=== PATIENT | female | born 1955 ===

== ENCOUNTER 2022-01-16 09:45 | Inpatient (IN) ==
[2022-01-16] MEDS ORDERED: Amoxicillin 500 MG CAPSULE PO SCH (16:00)
[2022-01-16] MEDS: Gabapentin 100 MG CAPSULE PO SCH ×2 (16:44→22:45)
[2022-01-16] MEDS: polyethylene glycoL 3350 17 GM POWD.PACK PO SCH (18:04)
[2022-01-16] MEDS: FILGRASTIM SNDZ 480 MCG/0.8 ML SQ SCH (18:14)
[2022-01-16] MEDS: *HR* HYDROmorphone 2 MG TABLET PO PRN (22:44)
[2022-01-16] MEDS: Sennosides 8.6 MG TABLET PO SCH (22:45)
[2022-01-16] MEDS: [UNRECOGNIZED DRUG - REMARK] PO SCH (22:46)
[2022-01-17] MEDS: Amoxicillin 500 MG CAPSULE PO SCH ×4 (00:41→23:04)
[2022-01-17 04:58] LABS: Hematocrit 23.4 % (35.3-44.9); Hemoglobin 7.5 g/dL (11.5-15.4); Mean Corpuscular HGB Conc 32.1 g/dL (31.6-35.5); Mean Corpuscular Hemoglobin 28.6 pg (28.0-33.3); Mean Corpuscular Volume 89.3 fL (83.0-100.0); Mean Platelet Volume 10.3 fL (9.4-12.4); Platelet Count 187 K/mcL (140-400); Red Blood Count 2.62 M/mcL (3.82-4.97); Red Cell Distribution Width 14.7 % (11.5-14.5); White Blood Count 17.7 K/mcL (4.3-11.1)
[2022-01-17 04:59] LABS: Basophils # 0.2 K/mcL (0.0-0.2); Basophils % 0.9 %; Eosinophils % 0.1 %; Immature Granulocytes % 21.9 % (0-4); Lymphocytes # 1.8 K/mcL (0.6-4.6); Monocytes # 1.9 K/mcL (0.0-1.3); Monocytes % 10.8 %; Nucleated Red Blood Cells 0.8 /100 WBC (0); Segmented Neutrophils % 56.3 %
[2022-01-17] MEDS: *HR* HYDROmorphone 2 MG TABLET PO PRN ×2 (05:05→20:56)
[2022-01-17 05:06] LABS: Platelet Estimate Normal (Normal)
[2022-01-17] MEDS: *HR* Enoxaparin 40 MG/0.4 ML SYRINGE SQ SCH (05:08)
[2022-01-17] MEDS: polyethylene glycoL 3350 17 GM POWD.PACK PO SCH ×2 (05:09→17:21)
[2022-01-17 05:12] LABS: BUN/Creatinine Ratio 17 (6-26); Blood Urea Nitrogen 11 mg/dL (8-23); Calcium 8.5 mg/dL (8.6-10.3); Carbon Dioxide 29 mEq/L (23-29); Chloride 104 mEq/L (98-107); Glucose 109 mg/dL (70-105); Osmolality,Calculated 290 (280-300); Sodium 140 mEq/L (136-145); eGFR For African Americans > 60 (> 60); eGFR For Non-African Americans > 60 (> 60)
[2022-01-17] MEDS: Gabapentin 100 MG CAPSULE PO SCH ×3 (08:03→20:54)
[2022-01-17] MEDS: Sennosides 8.6 MG TABLET PO SCH ×2 (08:03→20:54)
[2022-01-17] MEDS: dexAMETHasone 4 MG TABLET PO SCH (08:04)
[2022-01-17] MEDS: [UNRECOGNIZED DRUG - REMARK] PO SCH ×3 (08:04→20:56)
[2022-01-17] MEDS: GUAR GUM PO SCH (08:04)
[2022-01-17] MEDS: Ondansetron ODT 4 MG TAB.RAPDIS SL PRN (12:35)
[2022-01-17] MEDS: FILGRASTIM SNDZ 480 MCG/0.8 ML SQ SCH (17:23)
[2022-01-18] MEDS: polyethylene glycoL 3350 17 GM POWD.PACK PO SCH ×2 (06:02→17:50)
[2022-01-18] MEDS: *HR* HYDROmorphone 2 MG TABLET PO PRN ×4 (06:21→20:06)
[2022-01-18] MEDS: *HR* Enoxaparin 40 MG/0.4 ML SYRINGE SQ SCH (06:21)
[2022-01-18] MEDS: [UNRECOGNIZED DRUG - REMARK] PO SCH ×3 (09:03→21:52)
[2022-01-18] MEDS: GUAR GUM PO SCH (09:03)
[2022-01-18] MEDS: dexAMETHasone 4 MG TABLET PO SCH (09:44)
[2022-01-18] MEDS: Gabapentin 100 MG CAPSULE PO SCH ×3 (09:45→20:03)
[2022-01-18] MEDS: Sennosides 8.6 MG TABLET PO SCH ×2 (09:45→20:03)
[2022-01-18] MEDS: Amoxicillin 500 MG CAPSULE PO SCH ×3 (09:45→15:58)
[2022-01-18] MEDS: FILGRASTIM SNDZ 480 MCG/0.8 ML SQ SCH (17:33)
[2022-01-18] MEDS: *HR* LORazepam 0.5 MG TABLET PO PRN (17:50)
[2022-01-19] MEDS: *HR* HYDROmorphone 2 MG TABLET PO PRN ×3 (05:28→20:20)
[2022-01-19] MEDS: Sennosides 8.6 MG TABLET PO SCH ×2 (05:28→20:19)
[2022-01-19] MEDS: dexAMETHasone 4 MG TABLET PO SCH (05:28)
[2022-01-19] MEDS: [UNRECOGNIZED DRUG - REMARK] PO SCH ×3 (05:34→20:22)
[2022-01-19] MEDS: Gabapentin 100 MG CAPSULE PO SCH ×3 (05:34→20:20)
[2022-01-19] MEDS: polyethylene glycoL 3350 17 GM POWD.PACK PO SCH ×2 (05:34→17:00)
[2022-01-19] MEDS: GUAR GUM PO SCH (05:35)
[2022-01-19] MEDS: *HR* Enoxaparin 40 MG/0.4 ML SYRINGE SQ SCH (05:35)
[2022-01-19 06:01] LABS: Basophils # 0.1 K/mcL (0.0-0.2); Basophils % 0.3 %; Eosinophils % 0.1 %; Hematocrit 26.8 % (35.3-44.9); Hemoglobin 8.1 g/dL (11.5-15.4); Immature Granulocytes % 15.9 % (0-4); Lymphocytes % 11.7 %; Mean Corpuscular HGB Conc 30.2 g/dL (31.6-35.5); Mean Corpuscular Hemoglobin 28.4 pg (28.0-33.3); Mean Platelet Volume 9.9 fL (9.4-12.4); Monocytes % 10.7 %; Nucleated Red Blood Cells 1.5 /100 WBC (0); Platelet Count 363 K/mcL (140-400); Red Blood Count 2.85 M/mcL (3.82-4.97); Segmented Neutrophils % 61.3 %; White Blood Count 17.2 K/mcL (4.3-11.1)
[2022-01-19 06:21] LABS: Monocytes # 1.8 K/mcL (0.0-1.3); Neutrophils # 10.5 K/mcL (1.6-8.9)
[2022-01-19 06:22] LABS: Alanine Aminotransferase 92 Units/L (7-52); Albumin 2.7 g/dL (3.5-5.7); Alkaline Phosphatase 619 Units/L (34-104); Aspartate Amino Transferase 88 Units/L (13-39); BUN/Creatinine Ratio 20 (6-26); Bilirubin,Total 0.3 mg/dL (0.3-1.0); Blood Urea Nitrogen 11 mg/dL (8-23); Calcium 8.8 mg/dL (8.6-10.3); Carbon Dioxide 31 mEq/L (23-29); Chloride 105 mEq/L (98-107); Globulin 2.8 g/dL (2.4-3.5); Glucose 92 mg/dL (70-105); Magnesium 1.5 mg/dL (1.6-2.6); Osmolality,Calculated 295 (280-300); Potassium 3.7 mEq/L (3.5-5.1); Sodium 143 mEq/L (136-145); Total Protein 5.5 g/dL (6.4-8.9); eGFR For African Americans > 60 (> 60); eGFR For Non-African Americans > 60 (> 60)
[2022-01-19 06:23] LABS: Anisocytosis 1+ (Not Present); Platelet Estimate Normal (Normal); Poikilocytosis 1+ (Not Present)
[2022-01-19] MEDS: Acetaminophen 325 MG TABLET PO PRN (15:18)
[2022-01-19] MEDS: *HR* LORazepam 0.5 MG TABLET PO PRN (15:18)
[2022-01-19] MEDS: FILGRASTIM SNDZ 480 MCG/0.8 ML SQ SCH (17:02)
[2022-01-20] MEDS: polyethylene glycoL 3350 17 GM POWD.PACK PO SCH ×3 (05:21→23:01)
[2022-01-20] MEDS: *HR* HYDROmorphone 2 MG TABLET PO PRN (05:22)
[2022-01-20] MEDS: *HR* Enoxaparin 40 MG/0.4 ML SYRINGE SQ SCH (05:24)
[2022-01-20] MEDS: Sennosides 8.6 MG TABLET PO SCH ×2 (08:43→20:35)
[2022-01-20] MEDS: dexAMETHasone 4 MG TABLET PO SCH (08:43)
[2022-01-20] MEDS: Gabapentin 100 MG CAPSULE PO SCH ×3 (08:43→20:34)
[2022-01-20] MEDS: GUAR GUM PO SCH (08:45)
[2022-01-20] MEDS: [UNRECOGNIZED DRUG - REMARK] PO SCH ×3 (08:45→20:35)
[2022-01-20] MEDS: FILGRASTIM SNDZ 480 MCG/0.8 ML SQ SCH (16:37)
[2022-01-20] MEDS: *HR* LORazepam 0.5 MG TABLET PO PRN (20:34)
[2022-01-21] MEDS: *HR* Enoxaparin 40 MG/0.4 ML SYRINGE SQ SCH (06:25)
[2022-01-21] MEDS: [UNRECOGNIZED DRUG - REMARK] PO SCH ×3 (08:29→20:54)
[2022-01-21] MEDS: dexAMETHasone 4 MG TABLET PO SCH (08:29)
[2022-01-21] MEDS: Gabapentin 100 MG CAPSULE PO SCH ×3 (08:29→20:55)
[2022-01-21] MEDS: Sennosides 8.6 MG TABLET PO SCH ×2 (08:29→20:54)
[2022-01-21] MEDS: GUAR GUM PO SCH (08:30)
[2022-01-21] MEDS: *HR* HYDROmorphone 2 MG TABLET PO PRN ×2 (15:11→20:58)
[2022-01-21] MEDS: *HR* LORazepam 0.5 MG TABLET PO PRN (15:11)
[2022-01-21] MEDS: polyethylene glycoL 3350 17 GM POWD.PACK PO SCH (17:33)
[2022-01-21] MEDS: FILGRASTIM SNDZ 480 MCG/0.8 ML SQ SCH (17:34)
[2022-01-22] MEDS: polyethylene glycoL 3350 17 GM POWD.PACK PO SCH ×2 (00:43→18:03)
[2022-01-22 04:38] LABS: Basophils # 0.1 K/mcL (0.0-0.2); Basophils % 0.4 %; Hematocrit 23.8 % (35.3-44.9); Hemoglobin 7.4 g/dL (11.5-15.4); Immature Granulocytes % 5.5 % (0-4); Lymphocytes # 1.4 K/mcL (0.6-4.6); Lymphocytes % 10.9 %; Mean Corpuscular HGB Conc 31.1 g/dL (31.6-35.5); Mean Corpuscular Hemoglobin 28.1 pg (28.0-33.3); Mean Corpuscular Volume 90.5 fL (83.0-100.0); Mean Platelet Volume 9.5 fL (9.4-12.4); Monocytes # 1.3 K/mcL (0.0-1.3); Neutrophils # 9.6 K/mcL (1.6-8.9); Nucleated Red Blood Cells 0.7 /100 WBC (0); Platelet Count 494 K/mcL (140-400); Red Blood Count 2.63 M/mcL (3.82-4.97); Segmented Neutrophils % 73.2 %; White Blood Count 13.1 K/mcL (4.3-11.1)
[2022-01-22 04:43] LABS: Anisocytosis 1+ (Not Present)
[2022-01-22 04:44] LABS: Poikilocytosis 1+ (Not Present)
[2022-01-22] MEDS: *HR* Enoxaparin 40 MG/0.4 ML SYRINGE SQ SCH (04:44)
[2022-01-22 04:52] LABS: BUN/Creatinine Ratio 38 (6-26); Blood Urea Nitrogen 21 mg/dL (8-23); Carbon Dioxide 29 mEq/L (23-29); Chloride 105 mEq/L (98-107); Glucose 95 mg/dL (70-105); Osmolality,Calculated 295 (280-300); Potassium 3.6 mEq/L (3.5-5.1); Sodium 141 mEq/L (136-145); eGFR For African Americans > 60 (> 60); eGFR For Non-African Americans > 60 (> 60)
[2022-01-22] MEDS: dexAMETHasone 4 MG TABLET PO SCH (09:15)
[2022-01-22] MEDS: Gabapentin 100 MG CAPSULE PO SCH ×3 (09:15→19:54)
[2022-01-22] MEDS: Sennosides 8.6 MG TABLET PO SCH ×2 (09:16→19:56)
[2022-01-22] MEDS: *HR* HYDROmorphone 2 MG TABLET PO PRN ×2 (09:16→18:03)
[2022-01-22] MEDS: [UNRECOGNIZED DRUG - REMARK] PO SCH ×2 (09:16→15:19)
[2022-01-22] MEDS: GUAR GUM PO SCH (09:17)
[2022-01-22] MEDS: *HR* LORazepam 0.5 MG TABLET PO PRN (10:16)
[2022-01-22] MEDS: FILGRASTIM SNDZ 480 MCG/0.8 ML SQ SCH (18:03)
[2022-01-23] MEDS: [UNRECOGNIZED DRUG - REMARK] PO SCH ×4 (04:46→20:16)
[2022-01-23] MEDS: polyethylene glycoL 3350 17 GM POWD.PACK PO SCH ×2 (04:46→16:38)
[2022-01-23] MEDS: *HR* Enoxaparin 40 MG/0.4 ML SYRINGE SQ SCH (06:40)
[2022-01-23] MEDS: GUAR GUM PO SCH (07:43)
[2022-01-23] MEDS: dexAMETHasone 4 MG TABLET PO SCH (07:55)
[2022-01-23] MEDS: Gabapentin 100 MG CAPSULE PO SCH ×3 (07:55→20:32)
[2022-01-23] MEDS: Sennosides 8.6 MG TABLET PO SCH ×2 (07:55→20:32)
[2022-01-23] MEDS: *HR* HYDROmorphone 2 MG TABLET PO PRN (07:56)
[2022-01-23] MEDS: *HR* LORazepam 0.5 MG TABLET PO PRN (09:16)
[2022-01-23] MEDS: FILGRASTIM SNDZ 480 MCG/0.8 ML SQ SCH (16:22)
[2022-01-24 04:58] LABS: Hemoglobin 7.9 g/dL (11.5-15.4); Mean Corpuscular HGB Conc 31.6 g/dL (31.6-35.5); Mean Corpuscular Hemoglobin 28.3 pg (28.0-33.3); Mean Corpuscular Volume 89.6 fL (83.0-100.0); Mean Platelet Volume 9.4 fL (9.4-12.4); Platelet Count 563 K/mcL (140-400); Red Blood Count 2.79 M/mcL (3.82-4.97); Red Cell Distribution Width 14.9 % (11.5-14.5); White Blood Count 8.2 K/mcL (4.3-11.1)
[2022-01-24] MEDS: polyethylene glycoL 3350 17 GM POWD.PACK PO SCH ×2 (04:58→18:07)
[2022-01-24 05:16] LABS: Alanine Aminotransferase 55 Units/L (7-52); Albumin 2.9 g/dL (3.5-5.7); Albumin/Globulin Ratio 1.2 (1.1-2.2); Alkaline Phosphatase 370 Units/L (34-104); Aspartate Amino Transferase 57 Units/L (13-39); BUN/Creatinine Ratio 38 (6-26); Bilirubin,Total 0.3 mg/dL (0.3-1.0); Blood Urea Nitrogen 24 mg/dL (8-23); Calcium 8.9 mg/dL (8.6-10.3); Carbon Dioxide 25 mEq/L (23-29); Chloride 107 mEq/L (98-107); Globulin 2.5 g/dL (2.4-3.5); Glucose 95 mg/dL (70-105); Magnesium 1.7 mg/dL (1.6-2.6); Osmolality,Calculated 294 (280-300); Potassium 4.2 mEq/L (3.5-5.1); Sodium 140 mEq/L (136-145); Total Protein 5.4 g/dL (6.4-8.9); eGFR For African Americans > 60 (> 60); eGFR For Non-African Americans > 60 (> 60)
[2022-01-24] MEDS: *HR* Enoxaparin 40 MG/0.4 ML SYRINGE SQ SCH (06:30)
[2022-01-24] MEDS: *HR* HYDROmorphone 2 MG TABLET PO PRN (08:20)
[2022-01-24] MEDS: Gabapentin 100 MG CAPSULE PO SCH ×3 (08:21→20:41)
[2022-01-24] MEDS: Sennosides 8.6 MG TABLET PO SCH ×2 (08:22→20:41)
[2022-01-24] MEDS: GUAR GUM PO SCH (08:22)
[2022-01-24] MEDS: [UNRECOGNIZED DRUG - REMARK] PO SCH ×3 (08:22→20:39)
[2022-01-24] MEDS: dexAMETHasone 4 MG TABLET PO SCH (08:22)
[2022-01-24] MEDS: *HR* LORazepam 0.5 MG TABLET PO PRN (10:55)
[2022-01-24] MEDS: FILGRASTIM SNDZ 480 MCG/0.8 ML SQ SCH (18:08)
[2022-01-25] MEDS: polyethylene glycoL 3350 17 GM POWD.PACK PO SCH ×2 (05:12→17:16)
[2022-01-25] MEDS: *HR* Enoxaparin 40 MG/0.4 ML SYRINGE SQ SCH (05:12)
[2022-01-25] MEDS: dexAMETHasone 4 MG TABLET PO SCH (09:26)
[2022-01-25] MEDS: Sennosides 8.6 MG TABLET PO SCH ×2 (09:26→21:00)
[2022-01-25] MEDS: Gabapentin 100 MG CAPSULE PO SCH ×3 (09:28→21:00)
[2022-01-25] MEDS: GUAR GUM PO SCH (09:29)
[2022-01-25] MEDS: [UNRECOGNIZED DRUG - REMARK] PO SCH ×3 (09:29→21:01)
[2022-01-25] MEDS: FILGRASTIM SNDZ 480 MCG/0.8 ML SQ SCH (17:16)
[2022-01-25] MEDS: Ondansetron ODT 4 MG TAB.RAPDIS SL PRN (18:55)
[2022-01-26] MEDS: *HR* HYDROmorphone 2 MG TABLET PO PRN ×3 (00:20→13:06)
[2022-01-26] MEDS: *HR* Enoxaparin 40 MG/0.4 ML SYRINGE SQ SCH (06:00)
[2022-01-26] MEDS: polyethylene glycoL 3350 17 GM POWD.PACK PO SCH ×2 (06:01→15:28)
[2022-01-26 07:42] LABS: Hematocrit 25.9 % (35.3-44.9); Hemoglobin 7.8 g/dL (11.5-15.4); Mean Corpuscular HGB Conc 30.1 g/dL (31.6-35.5); Mean Corpuscular Volume 92.8 fL (83.0-100.0); Mean Platelet Volume 9.9 fL (9.4-12.4); Platelet Count 505 K/mcL (140-400); Red Blood Count 2.79 M/mcL (3.82-4.97); White Blood Count 22.8 K/mcL (4.3-11.1)
[2022-01-26 07:54] LABS: Alanine Aminotransferase 55 Units/L (7-52); Albumin 3.1 g/dL (3.5-5.7); Albumin/Globulin Ratio 1.2 (1.1-2.2); Alkaline Phosphatase 343 Units/L (34-104); Aspartate Amino Transferase 58 Units/L (13-39); BUN/Creatinine Ratio 43 (6-26); Bilirubin,Total 0.4 mg/dL (0.3-1.0); Blood Urea Nitrogen 21 mg/dL (8-23); Calcium 8.9 mg/dL (8.6-10.3); Carbon Dioxide 23 mEq/L (23-29); Chloride 101 mEq/L (98-107); Globulin 2.6 g/dL (2.4-3.5); Glucose 84 mg/dL (70-105); Magnesium 1.5 mg/dL (1.6-2.6); Osmolality,Calculated 282 (280-300); Potassium 3.7 mEq/L (3.5-5.1); Sodium 135 mEq/L (136-145); Total Protein 5.7 g/dL (6.4-8.9); eGFR For African Americans > 60 (> 60); eGFR For Non-African Americans > 60 (> 60)
[2022-01-26] MEDS: [UNRECOGNIZED DRUG - REMARK] PO SCH ×3 (07:59→20:37)
[2022-01-26] MEDS: GUAR GUM PO SCH (07:59)
[2022-01-26] MEDS: dexAMETHasone 4 MG TABLET PO SCH (07:59)
[2022-01-26] MEDS: Ondansetron ODT 4 MG TAB.RAPDIS SL PRN ×2 (07:59→13:06)
[2022-01-26] MEDS: Sennosides 8.6 MG TABLET PO SCH ×2 (08:00→20:37)
[2022-01-26] MEDS: Gabapentin 100 MG CAPSULE PO SCH ×3 (08:00→20:37)
[2022-01-26] MEDS: FILGRASTIM SNDZ 480 MCG/0.8 ML SQ SCH (15:28)
[2022-01-26 17:32] LABS: Bilirubin,Urine Negative (Negative); Blood,Urine Negative (Negative); Clarity,Urine Clear (Clear); Color,Urine Yellow (Yellow); Glucose,Urine (UA) Normal (Normal); Ketones,Urine Negative (Negative); Leukocyte Esterase,Urine Negative (Negative); Nitrite,Urine Negative (Negative); Protein,Urine Negative (Neg-Trace); Specific Gravity,Urine 1.025 (1.010-1.025); Urobilinogen,Urine Normal (Normal)
[2022-01-27] MEDS: *HR* Enoxaparin 40 MG/0.4 ML SYRINGE SQ SCH (05:56)
[2022-01-27] MEDS: polyethylene glycoL 3350 17 GM POWD.PACK PO SCH ×2 (05:56→15:58)
[2022-01-27 06:06] LABS: Hematocrit 21.5 % (35.3-44.9); Hemoglobin 6.7 g/dL (11.5-15.4); Mean Corpuscular HGB Conc 31.2 g/dL (31.6-35.5); Mean Corpuscular Hemoglobin 28.3 pg (28.0-33.3); Mean Corpuscular Volume 90.7 fL (83.0-100.0); Mean Platelet Volume 9.4 fL (9.4-12.4); Platelet Count 397 K/mcL (140-400); Red Blood Count 2.37 M/mcL (3.82-4.97); White Blood Count 20.8 K/mcL (4.3-11.1)
[2022-01-27 06:21] LABS: Alanine Aminotransferase 41 Units/L (7-52); Alkaline Phosphatase 299 Units/L (34-104); Aspartate Amino Transferase 32 Units/L (13-39); BUN/Creatinine Ratio 36 (6-26); Bilirubin,Total 0.4 mg/dL (0.3-1.0); Blood Urea Nitrogen 16 mg/dL (8-23); Calcium 8.8 mg/dL (8.6-10.3); Carbon Dioxide 25 mEq/L (23-29); Chloride 100 mEq/L (98-107); Globulin 2.9 g/dL (2.4-3.5); Glucose 101 mg/dL (70-105); Magnesium 1.8 mg/dL (1.6-2.6); Osmolality,Calculated 279 (280-300); Phosphorous 2.9 mg/dL (2.7-4.5); Potassium 3.6 mEq/L (3.5-5.1); Sodium 134 mEq/L (136-145); Total Protein 5.9 g/dL (6.4-8.9); eGFR For African Americans > 60 (> 60); eGFR For Non-African Americans > 60 (> 60)
[2022-01-27] MEDS: GUAR GUM PO SCH (08:58)
[2022-01-27] MEDS: Sennosides 8.6 MG TABLET PO SCH ×2 (08:58→20:07)
[2022-01-27] MEDS: [UNRECOGNIZED DRUG - REMARK] PO SCH ×3 (08:58→20:20)
[2022-01-27] MEDS: dexAMETHasone 4 MG TABLET PO SCH (09:12)
[2022-01-27] MEDS: Gabapentin 100 MG CAPSULE PO SCH ×3 (09:12→20:07)
[2022-01-27] MEDS: *HR* HYDROmorphone 2 MG TABLET PO PRN (11:25)
[2022-01-27] MEDS: FILGRASTIM SNDZ 480 MCG/0.8 ML SQ SCH (15:59)
[2022-01-27] MEDS: *HR* LORazepam 0.5 MG TABLET PO PRN (20:07)
[2022-01-28] MEDS: polyethylene glycoL 3350 17 GM POWD.PACK PO SCH ×2 (05:04→16:02)
[2022-01-28] MEDS: *HR* Enoxaparin 40 MG/0.4 ML SYRINGE SQ SCH (05:05)
[2022-01-28 06:26] LABS: Basophils % 0.3 %; Hematocrit 19.9 % (35.3-44.9); Hemoglobin 6.3 g/dL (11.5-15.4); Immature Granulocytes % 12.1 % (0-4); Lymphocytes # 0.7 K/mcL (0.6-4.6); Lymphocytes % 6.5 %; Mean Corpuscular HGB Conc 31.7 g/dL (31.6-35.5); Mean Corpuscular Hemoglobin 28.4 pg (28.0-33.3); Mean Corpuscular Volume 89.6 fL (83.0-100.0); Mean Platelet Volume 9.5 fL (9.4-12.4); Monocytes % 0.3 %; Neutrophils # 8.4 K/mcL (1.6-8.9); Platelet Count 313 K/mcL (140-400); Red Blood Count 2.22 M/mcL (3.82-4.97); Red Cell Distribution Width 14.8 % (11.5-14.5); Segmented Neutrophils % 80.8 %; White Blood Count 10.4 K/mcL (4.3-11.1)
[2022-01-28 07:13] LABS: BUN/Creatinine Ratio 42 (6-26); Blood Urea Nitrogen 18 mg/dL (8-23); Carbon Dioxide 27 mEq/L (23-29); Chloride 99 mEq/L (98-107); Glucose 91 mg/dL (70-105); Osmolality,Calculated 279 (280-300); Potassium 3.7 mEq/L (3.5-5.1); Sodium 134 mEq/L (136-145); eGFR For African Americans > 60 (> 60); eGFR For Non-African Americans > 60 (> 60)
[2022-01-28 07:55] LABS: Platelet Estimate Normal (Normal)
[2022-01-28] MEDS ORDERED: 0.9 % Sodium Chloride 250 ML ONE (09:48)
[2022-01-28] MEDS: Sennosides 8.6 MG TABLET PO SCH ×2 (10:13→20:45)
[2022-01-28] MEDS: [UNRECOGNIZED DRUG - REMARK] PO SCH (10:13)
[2022-01-28] MEDS: GUAR GUM PO SCH (10:13)
[2022-01-28] MEDS: dexAMETHasone 4 MG TABLET PO SCH (13:15)
[2022-01-28] MEDS: Gabapentin 100 MG CAPSULE PO SCH ×3 (13:16→20:45)
[2022-01-28] MEDS: *HR* LORazepam 0.5 MG TABLET PO PRN (13:26)
[2022-01-28 15:36] LABS: Hematocrit 26.1 % (35.3-44.9); Hemoglobin 8.3 g/dL (11.5-15.4)
[2022-01-29 04:43] LABS: Basophils % 0.4 %; Hematocrit 24.2 % (35.3-44.9); Hemoglobin 7.8 g/dL (11.5-15.4); Immature Granulocytes % 15.1 % (0-4); Lymphocytes # 0.8 K/mcL (0.6-4.6); Mean Corpuscular HGB Conc 32.2 g/dL (31.6-35.5); Mean Corpuscular Hemoglobin 27.6 pg (28.0-33.3); Mean Corpuscular Volume 85.5 fL (83.0-100.0); Mean Platelet Volume 9.6 fL (9.4-12.4); Monocytes % 0.7 %; Platelet Count 294 K/mcL (140-400); Red Blood Count 2.83 M/mcL (3.82-4.97); Segmented Neutrophils % 65.8 %; White Blood Count 4.5 K/mcL (4.3-11.1)
[2022-01-29 04:49] LABS: Anisocytosis 1+ (Not Present); Platelet Estimate Normal (Normal)
[2022-01-29 04:58] LABS: BUN/Creatinine Ratio 45 (6-26); Blood Urea Nitrogen 17 mg/dL (8-23); Calcium 9.3 mg/dL (8.6-10.3); Carbon Dioxide 28 mEq/L (23-29); Chloride 103 mEq/L (98-107); Glucose 89 mg/dL (70-105); Osmolality,Calculated 289 (280-300); Sodium 139 mEq/L (136-145); eGFR For African Americans > 60 (> 60); eGFR For Non-African Americans > 60 (> 60)
[2022-01-29] MEDS: polyethylene glycoL 3350 17 GM POWD.PACK PO SCH ×2 (05:19→17:08)
[2022-01-29] MEDS: *HR* Enoxaparin 40 MG/0.4 ML SYRINGE SQ SCH (05:19)
[2022-01-29] MEDS: Gabapentin 100 MG CAPSULE PO SCH ×3 (07:56→21:16)
[2022-01-29] MEDS: Sennosides 8.6 MG TABLET PO SCH ×2 (07:57→21:16)
[2022-01-29] MEDS: dexAMETHasone 4 MG TABLET PO SCH (07:57)
[2022-01-29] MEDS: *HR* HYDROmorphone 2 MG TABLET PO PRN (14:16)
[2022-01-30] MEDS: polyethylene glycoL 3350 17 GM POWD.PACK PO SCH ×2 (04:36→16:38)
[2022-01-30] MEDS: *HR* Enoxaparin 40 MG/0.4 ML SYRINGE SQ SCH (05:47)
[2022-01-30 06:07] LABS: Basophils % 0.6 %; Hematocrit 27.1 % (35.3-44.9); Hemoglobin 8.2 g/dL (11.5-15.4); Immature Granulocytes % 6.7 % (0-4); Lymphocytes # 0.8 K/mcL (0.6-4.6); Mean Corpuscular HGB Conc 30.3 g/dL (31.6-35.5); Mean Corpuscular Hemoglobin 27.3 pg (28.0-33.3); Mean Corpuscular Volume 90.3 fL (83.0-100.0); Mean Platelet Volume 9.4 fL (9.4-12.4); Monocytes % 2.4 %; Platelet Count 204 K/mcL (140-400); Red Cell Distribution Width 15.8 % (11.5-14.5); Segmented Neutrophils % 40.3 %; White Blood Count 1.6 K/mcL (4.3-11.1)
[2022-01-30 06:08] LABS: Neutrophils # 0.6 K/mcL (1.6-8.9)
[2022-01-30 06:26] LABS: BUN/Creatinine Ratio 50 (6-26); Blood Urea Nitrogen 21 mg/dL (8-23); Calcium 9.3 mg/dL (8.6-10.3); Carbon Dioxide 26 mEq/L (23-29); Chloride 103 mEq/L (98-107); Glucose 86 mg/dL (70-105); Osmolality,Calculated 290 (280-300); Potassium 3.9 mEq/L (3.5-5.1); Sodium 139 mEq/L (136-145); eGFR For African Americans > 60 (> 60); eGFR For Non-African Americans > 60 (> 60)
[2022-01-30] MEDS: dexAMETHasone 4 MG TABLET PO SCH (07:48)
[2022-01-30] MEDS: Gabapentin 100 MG CAPSULE PO SCH ×3 (07:49→20:53)
[2022-01-30] MEDS: Sennosides 8.6 MG TABLET PO SCH ×3 (07:49→21:07)
[2022-01-30] MEDS: *HR* LORazepam 0.5 MG TABLET PO PRN (20:55)
[2022-01-31] MEDS: *HR* Enoxaparin 40 MG/0.4 ML SYRINGE SQ SCH (05:49)
[2022-01-31] MEDS: polyethylene glycoL 3350 17 GM POWD.PACK PO SCH ×2 (05:49→17:12)
[2022-01-31 06:49] LABS: Hematocrit 24.2 % (35.3-44.9); Hemoglobin 7.5 g/dL (11.5-15.4); Mean Corpuscular Hemoglobin 27.5 pg (28.0-33.3); Mean Corpuscular Volume 88.6 fL (83.0-100.0); Mean Platelet Volume 9.9 fL (9.4-12.4); Platelet Count 161 K/mcL (140-400); Red Blood Count 2.73 M/mcL (3.82-4.97); Red Cell Distribution Width 15.4 % (11.5-14.5)
[2022-01-31 07:00] LABS: Alanine Aminotransferase 46 Units/L (7-52); Albumin 3.2 g/dL (3.5-5.7); Albumin/Globulin Ratio 1.1 (1.1-2.2); Alkaline Phosphatase 240 Units/L (34-104); Aspartate Amino Transferase 25 Units/L (13-39); BUN/Creatinine Ratio 45 (6-26); Bilirubin,Total 0.6 mg/dL (0.3-1.0); Blood Urea Nitrogen 18 mg/dL (8-23); Calcium 9.3 mg/dL (8.6-10.3); Carbon Dioxide 26 mEq/L (23-29); Chloride 103 mEq/L (98-107); Glucose 88 mg/dL (70-105); Magnesium 1.3 mg/dL (1.6-2.6); Osmolality,Calculated 287 (280-300); Potassium 3.6 mEq/L (3.5-5.1); Sodium 138 mEq/L (136-145); Total Protein 6.2 g/dL (6.4-8.9); eGFR For African Americans > 60 (> 60); eGFR For Non-African Americans > 60 (> 60)
[2022-01-31 07:08] LABS: White Blood Count 0.9 K/mcL (4.3-11.1)
[2022-01-31 07:09] LABS: Platelet Estimate Slight Decrease (Normal)
[2022-01-31] MEDS: *HR* HYDROmorphone 2 MG TABLET PO PRN ×2 (09:15→16:04)
[2022-01-31] MEDS: dexAMETHasone 4 MG TABLET PO SCH (09:15)
[2022-01-31] MEDS: *HR* LORazepam 0.5 MG TABLET PO PRN (09:15)
[2022-01-31] MEDS: Gabapentin 100 MG CAPSULE PO SCH ×3 (09:15→21:42)
[2022-01-31] MEDS: Sennosides 8.6 MG TABLET PO SCH ×2 (09:15→21:42)
[2022-01-31 09:29] LABS: Neutrophils # 0.3 K/mcL (1.6-8.9)
[2022-01-31] MEDS: Ondansetron ODT 4 MG TAB.RAPDIS SL PRN (18:52)
[2022-01-31] MEDS: Acetaminophen 325 MG TABLET PO PRN ×2 (18:52→23:46)
[2022-01-31] MEDS ORDERED: 0.9 % Sodium Chloride 1,000 ML IVC ONE (19:23)
[2022-01-31] MEDS ORDERED: 0.9 % Sodium Chloride 1,000 ML IVC SCH (19:30)
[2022-01-31 20:32] LABS: Bilirubin,Urine Negative (Negative); Blood,Urine Moderate (Negative); Clarity,Urine Slightly Cloudy (Clear); Color,Urine Yellow (Yellow); Glucose,Urine (UA) Normal (Normal); Ketones,Urine Negative (Negative); Leukocyte Esterase,Urine Small (Negative); Nitrite,Urine Positive (Negative); PH,Urine 6.5 pH Units (5.0-8.0); Protein,Urine 100 mg/dL (Neg-Trace); Urobilinogen,Urine Normal (Normal)
[2022-01-31 20:57] LABS: Bacteria,Urine Many per hpf (None-Few); Budding Yeast,Urine Moderate per hpf (None Seen); Squamous Epithelial Cell,Urine Few per hpf (None-Few); WBC,Urine 50-100 per hpf (0-3)
[2022-01-31] MEDS ORDERED: Vancomycin 1,000 MG, Vancomycin 500 MG in 0.9 % Sodium Chloride 250 ML IVPB ONE ×2 (21:00→22:00)
[2022-01-31] MEDS: Magnesium Oxide 400 MG TABLET PO SCH (21:42)
[2022-01-31] MEDS: 0.9 % Sodium Chloride 1,000 ML IVC SCH (23:11)
[2022-01-31] MEDS: Cefepime HCl 1,000 MG in 0.9 % Sodium Chloride Mini Bag 100 ML IVPB SCH (23:47)
[2022-02-01] MEDS: *HR* Enoxaparin 40 MG/0.4 ML SYRINGE SQ SCH (05:44)
[2022-02-01] MEDS: polyethylene glycoL 3350 17 GM POWD.PACK PO SCH ×2 (05:48→17:32)
[2022-02-01] MEDS: Magnesium Oxide 400 MG TABLET PO SCH ×2 (08:46→19:47)
[2022-02-01] MEDS: Sennosides 8.6 MG TABLET PO SCH ×2 (08:47→19:47)
[2022-02-01] MEDS: Gabapentin 100 MG CAPSULE PO SCH ×3 (08:47→19:48)
[2022-02-01] MEDS: Cefepime HCl 1,000 MG in 0.9 % Sodium Chloride Mini Bag 100 ML IVPB SCH (08:47)
[2022-02-01] MEDS: *HR* HYDROmorphone 2 MG TABLET PO PRN (08:51)
[2022-02-01] MEDS: 0.9 % Sodium Chloride 1,000 ML IVC SCH ×2 (09:56→16:15)
[2022-02-01 12:51] LABS: Basophils % 1.3 %; Hematocrit 19.4 % (35.3-44.9); Hemoglobin 6.2 g/dL (11.5-15.4); Immature Granulocytes % 5.3 % (0-4); Lymphocytes # 0.6 K/mcL (0.6-4.6); Lymphocytes % 80.3 %; Mean Corpuscular Hemoglobin 27.1 pg (28.0-33.3); Mean Corpuscular Volume 84.7 fL (83.0-100.0); Mean Platelet Volume 9.9 fL (9.4-12.4); Monocytes # 0.1 K/mcL (0.0-1.3); Monocytes % 10.5 %; Red Blood Count 2.29 M/mcL (3.82-4.97); Red Cell Distribution Width 15.1 % (11.5-14.5); Segmented Neutrophils % 2.6 %
[2022-02-01 13:04] LABS: Platelet Count 53 K/mcL (140-400)
[2022-02-01 13:06] LABS: White Blood Count 0.8 K/mcL (4.3-11.1)
[2022-02-01 13:17] LABS: Alanine Aminotransferase 32 Units/L (7-52); Albumin/Globulin Ratio 1.1 (1.1-2.2); Alkaline Phosphatase 216 Units/L (34-104); Aspartate Amino Transferase 15 Units/L (13-39); BUN/Creatinine Ratio 37 (6-26); Bilirubin,Total 0.5 mg/dL (0.3-1.0); Blood Urea Nitrogen 15 mg/dL (8-23); Calcium 8.3 mg/dL (8.6-10.3); Carbon Dioxide 24 mEq/L (23-29); Chloride 100 mEq/L (98-107); Globulin 2.8 g/dL (2.4-3.5); Glucose 113 mg/dL (70-105); Osmolality,Calculated 274 (280-300); Potassium 3.4 mEq/L (3.5-5.1); Sodium 131 mEq/L (136-145); Total Protein 5.8 g/dL (6.4-8.9); eGFR For African Americans > 60 (> 60); eGFR For Non-African Americans > 60 (> 60)
[2022-02-01 13:36] LABS: Platelet Estimate Marked Decrease (Normal)
[2022-02-01] MEDS: Cefepime HCl 2,000 MG in 0.9 % Sodium Chloride 10 ML IVP SCH ×2 (16:16→23:00)
[2022-02-01] MEDS: *HR* LORazepam 0.5 MG TABLET PO PRN (18:20)
[2022-02-01] MEDS ORDERED: 0.9 % Sodium Chloride 250 ML ONE (19:22)
[2022-02-01] MEDS: Acetaminophen 325 MG TABLET PO PRN (19:47)
[2022-02-02] MEDS: Acetaminophen 325 MG TABLET PO PRN ×2 (04:32→16:33)
[2022-02-02] MEDS: polyethylene glycoL 3350 17 GM POWD.PACK PO SCH ×2 (04:32→16:34)
[2022-02-02] MEDS: *HR* HYDROmorphone 2 MG TABLET PO PRN ×3 (04:38→20:19)
[2022-02-02] MEDS: Magnesium Oxide 400 MG TABLET PO SCH ×2 (08:21→20:19)
[2022-02-02] MEDS: Cefepime HCl 2,000 MG in 0.9 % Sodium Chloride 10 ML IVP SCH ×2 (08:22→16:33)
[2022-02-02] MEDS: Sennosides 8.6 MG TABLET PO SCH ×2 (08:22→20:19)
[2022-02-02] MEDS: Gabapentin 100 MG CAPSULE PO SCH ×3 (08:22→20:19)
[2022-02-02 11:10] LABS: Alanine Aminotransferase 22 Units/L (7-52); Albumin 2.8 g/dL (3.5-5.7); Alkaline Phosphatase 182 Units/L (34-104); Aspartate Amino Transferase 10 Units/L (13-39); BUN/Creatinine Ratio 26 (6-26); Bilirubin,Total 0.5 mg/dL (0.3-1.0); Blood Urea Nitrogen 9 mg/dL (8-23); Calcium 8.7 mg/dL (8.6-10.3); Carbon Dioxide 23 mEq/L (23-29); Chloride 105 mEq/L (98-107); Globulin 2.8 g/dL (2.4-3.5); Glucose 92 mg/dL (70-105); Osmolality,Calculated 284 (280-300); Potassium 2.7 mEq/L (3.5-5.1); Sodium 138 mEq/L (136-145); Total Protein 5.6 g/dL (6.4-8.9); eGFR For African Americans > 60 (> 60); eGFR For Non-African Americans > 60 (> 60)
[2022-02-02 11:17] LABS: Basophils % 2.5 %; Hemoglobin 7.2 g/dL (11.5-15.4); Lymphocytes # 0.6 K/mcL (0.6-4.6); Lymphocytes % 68.8 %; Mean Corpuscular HGB Conc 32.7 g/dL (31.6-35.5); Mean Corpuscular Hemoglobin 28.2 pg (28.0-33.3); Mean Corpuscular Volume 86.3 fL (83.0-100.0); Monocytes # 0.1 K/mcL (0.0-1.3); Monocytes % 16.3 %; Neutrophils # 0.1 K/mcL (1.6-8.9); Red Blood Count 2.55 M/mcL (3.82-4.97); Red Cell Distribution Width 15.1 % (11.5-14.5); Segmented Neutrophils % 12.4 %
[2022-02-02 11:19] LABS: White Blood Count 0.8 K/mcL (4.3-11.1)
[2022-02-02 11:20] LABS: Platelet Count 28 K/mcL (140-400)
[2022-02-02] MEDS ORDERED: 0.9 % Sodium Chloride 250 ML IVC SCH (13:45)
[2022-02-02] MEDS: Ondansetron ODT 4 MG TAB.RAPDIS SL PRN (16:39)
[2022-02-03] MEDS: Cefepime HCl 2,000 MG in 0.9 % Sodium Chloride 10 ML IVP SCH ×3 (00:27→15:18)
[2022-02-03 04:45] LABS: Hematocrit 22.1 % (35.3-44.9); Hemoglobin 7.3 g/dL (11.5-15.4); Mean Corpuscular Hemoglobin 27.9 pg (28.0-33.3); Mean Corpuscular Volume 84.4 fL (83.0-100.0); Mean Platelet Volume 10.5 fL (9.4-12.4); Red Blood Count 2.62 M/mcL (3.82-4.97); Red Cell Distribution Width 15.4 % (11.5-14.5); White Blood Count 1.8 K/mcL (4.3-11.1)
[2022-02-03 04:47] LABS: Platelet Count 38 K/mcL (140-400)
[2022-02-03 05:03] LABS: Alanine Aminotransferase 19 Units/L (7-52); Albumin 2.8 g/dL (3.5-5.7); Alkaline Phosphatase 167 Units/L (34-104); Aspartate Amino Transferase 10 Units/L (13-39); BUN/Creatinine Ratio 18 (6-26); Bilirubin,Total 0.5 mg/dL (0.3-1.0); Blood Urea Nitrogen 7 mg/dL (8-23); Carbon Dioxide 26 mEq/L (23-29); Chloride 104 mEq/L (98-107); Globulin 2.8 g/dL (2.4-3.5); Glucose 96 mg/dL (70-105); Magnesium 1.2 mg/dL (1.6-2.6); Osmolality,Calculated 280 (280-300); Potassium 3.4 mEq/L (3.5-5.1); Sodium 136 mEq/L (136-145); Total Protein 5.6 g/dL (6.4-8.9); eGFR For African Americans > 60 (> 60); eGFR For Non-African Americans > 60 (> 60)
[2022-02-03] MEDS: Ondansetron ODT 4 MG TAB.RAPDIS SL PRN (05:04)
[2022-02-03] MEDS: polyethylene glycoL 3350 17 GM POWD.PACK PO SCH ×2 (05:06→16:28)
[2022-02-03] MEDS: Gabapentin 100 MG CAPSULE PO SCH ×3 (08:08→20:47)
[2022-02-03] MEDS: Magnesium Oxide 400 MG TABLET PO SCH ×2 (08:08→20:47)
[2022-02-03] MEDS: Sennosides 8.6 MG TABLET PO SCH ×2 (08:08→20:48)
[2022-02-03] MEDS: *HR* HYDROmorphone 2 MG TABLET PO PRN ×2 (09:22→20:47)
[2022-02-04] MEDS: Cefepime HCl 2,000 MG in 0.9 % Sodium Chloride 10 ML IVP SCH ×2 (00:04→08:06)
[2022-02-04] MEDS: polyethylene glycoL 3350 17 GM POWD.PACK PO SCH ×2 (05:37→14:40)
[2022-02-04] MEDS: Gabapentin 100 MG CAPSULE PO SCH ×3 (08:05→20:08)
[2022-02-04] MEDS: Sennosides 8.6 MG TABLET PO SCH ×2 (08:05→20:08)
[2022-02-04] MEDS: Magnesium Oxide 400 MG TABLET PO SCH ×2 (08:05→20:07)
[2022-02-04] MEDS ORDERED: Meropenem 1,000 MG in 0.9 % Sodium Chloride Mini Bag 100 ML IVPB SCH (10:02)
[2022-02-04] MEDS: *HR* HYDROmorphone 2 MG TABLET PO PRN ×2 (12:29→22:42)
[2022-02-04] MEDS: Meropenem 1,000 MG in 0.9 % Sodium Chloride Mini Bag 100 ML IVPB SCH (20:03)
[2022-02-05] MEDS: Meropenem 1,000 MG in 0.9 % Sodium Chloride Mini Bag 100 ML IVPB SCH ×3 (03:54→20:46)
[2022-02-05] MEDS: *HR* HYDROmorphone 2 MG TABLET PO PRN ×3 (06:13→20:57)
[2022-02-05] MEDS: polyethylene glycoL 3350 17 GM POWD.PACK PO SCH ×2 (06:14→16:56)
[2022-02-05] MEDS: Magnesium Oxide 400 MG TABLET PO SCH ×2 (08:35→20:46)
[2022-02-05] MEDS: Gabapentin 100 MG CAPSULE PO SCH ×3 (08:35→20:46)
[2022-02-05] MEDS: Ondansetron ODT 4 MG TAB.RAPDIS SL PRN (08:35)
[2022-02-05] MEDS: Sennosides 8.6 MG TABLET PO SCH ×2 (08:35→20:46)
[2022-02-05] MEDS: *HR* LORazepam 0.5 MG TABLET PO PRN (09:42)
[2022-02-05 12:02] LABS: Basophils % 0.4 %; Hematocrit 26.8 % (35.3-44.9); Hemoglobin 8.7 g/dL (11.5-15.4); Immature Granulocytes % 24.7 % (0-4); Lymphocytes # 1.4 K/mcL (0.6-4.6); Lymphocytes % 17.8 %; Mean Corpuscular HGB Conc 32.5 g/dL (31.6-35.5); Mean Corpuscular Hemoglobin 27.8 pg (28.0-33.3); Mean Corpuscular Volume 85.6 fL (83.0-100.0); Mean Platelet Volume 11.6 fL (9.4-12.4); Monocytes # 0.9 K/mcL (0.0-1.3); Monocytes % 11.6 %; Neutrophils # 3.6 K/mcL (1.6-8.9); Nucleated Red Blood Cells 0.8 /100 WBC (0); Red Blood Count 3.13 M/mcL (3.82-4.97); Red Cell Distribution Width 15.7 % (11.5-14.5); Segmented Neutrophils % 45.5 %
[2022-02-05 12:05] LABS: Platelet Count 81 K/mcL (140-400)
[2022-02-05 12:21] LABS: BUN/Creatinine Ratio 24 (6-26); Blood Urea Nitrogen 9 mg/dL (8-23); Calcium 9.1 mg/dL (8.6-10.3); Carbon Dioxide 29 mEq/L (23-29); Chloride 98 mEq/L (98-107); Glucose 106 mg/dL (70-105); Osmolality,Calculated 285 (280-300); Potassium 2.5 mEq/L (3.5-5.1); Sodium 138 mEq/L (136-145); eGFR For African Americans > 60 (> 60); eGFR For Non-African Americans > 60 (> 60)
[2022-02-05 12:46] LABS: Platelet Estimate Decreased (Normal)
[2022-02-06] MEDS: Meropenem 1,000 MG in 0.9 % Sodium Chloride Mini Bag 100 ML IVPB SCH ×3 (04:21→20:28)
[2022-02-06] MEDS: polyethylene glycoL 3350 17 GM POWD.PACK PO SCH ×2 (04:22→17:50)
[2022-02-06 04:28] LABS: Basophils % 0.3 %; Eosinophils % 0.1 %; Hematocrit 25.5 % (35.3-44.9); Hemoglobin 8.2 g/dL (11.5-15.4); Immature Granulocytes % 22.7 % (0-4); Lymphocytes # 1.4 K/mcL (0.6-4.6); Lymphocytes % 15.4 %; Mean Corpuscular HGB Conc 32.2 g/dL (31.6-35.5); Mean Platelet Volume 11.4 fL (9.4-12.4); Monocytes # 1.3 K/mcL (0.0-1.3); Monocytes % 14.4 %; Neutrophils # 4.4 K/mcL (1.6-8.9); Nucleated Red Blood Cells 0.5 /100 WBC (0); Red Blood Count 2.93 M/mcL (3.82-4.97); Red Cell Distribution Width 15.9 % (11.5-14.5); Segmented Neutrophils % 47.1 %; White Blood Count 9.3 K/mcL (4.3-11.1)
[2022-02-06 04:32] LABS: Platelet Count 99 K/mcL (140-400)
[2022-02-06 04:33] LABS: Platelet Estimate Decreased (Normal)
[2022-02-06 05:01] LABS: BUN/Creatinine Ratio 23 (6-26); Blood Urea Nitrogen 8 mg/dL (8-23); Calcium 8.8 mg/dL (8.6-10.3); Carbon Dioxide 31 mEq/L (23-29); Chloride 105 mEq/L (98-107); Glucose 96 mg/dL (70-105); Osmolality,Calculated 290 (280-300); Potassium 4.2 mEq/L (3.5-5.1); Sodium 141 mEq/L (136-145); eGFR For African Americans > 60 (> 60); eGFR For Non-African Americans > 60 (> 60)
[2022-02-06] MEDS: Gabapentin 100 MG CAPSULE PO SCH ×3 (09:14→20:28)
[2022-02-06] MEDS: Sennosides 8.6 MG TABLET PO SCH ×2 (09:14→20:28)
[2022-02-06] MEDS: Magnesium Oxide 400 MG TABLET PO SCH ×2 (09:14→20:28)
[2022-02-06] MEDS: *HR* HYDROmorphone 2 MG TABLET PO PRN (13:00)
[2022-02-06] MEDS: *HR* LORazepam 0.5 MG TABLET PO PRN (20:39)
[2022-02-07] MEDS: Meropenem 1,000 MG in 0.9 % Sodium Chloride Mini Bag 100 ML IVPB SCH ×3 (04:28→20:23)
[2022-02-07] MEDS: polyethylene glycoL 3350 17 GM POWD.PACK PO SCH ×2 (05:13→16:57)
[2022-02-07] MEDS: Sennosides 8.6 MG TABLET PO SCH ×2 (09:23→20:24)
[2022-02-07] MEDS: Gabapentin 100 MG CAPSULE PO SCH ×3 (09:23→20:24)
[2022-02-07] MEDS: Magnesium Oxide 400 MG TABLET PO SCH ×2 (09:23→20:24)
[2022-02-07] MEDS: *HR* HYDROmorphone 2 MG TABLET PO PRN (13:46)
[2022-02-07] MEDS: *HR* LORazepam 0.5 MG TABLET PO PRN (20:24)
[2022-02-08] MEDS: Meropenem 1,000 MG in 0.9 % Sodium Chloride Mini Bag 100 ML IVPB SCH ×3 (05:07→19:45)
[2022-02-08] MEDS: polyethylene glycoL 3350 17 GM POWD.PACK PO SCH ×2 (05:08→16:54)
[2022-02-08] MEDS: Magnesium Oxide 400 MG TABLET PO SCH ×2 (09:36→19:45)
[2022-02-08] MEDS: *HR* HYDROmorphone 2 MG TABLET PO PRN ×4 (09:36→21:58)
[2022-02-08] MEDS: Gabapentin 100 MG CAPSULE PO SCH ×3 (09:37→19:45)
[2022-02-08] MEDS: Sennosides 8.6 MG TABLET PO SCH ×2 (09:37→20:14)
[2022-02-09] MEDS: Meropenem 1,000 MG in 0.9 % Sodium Chloride Mini Bag 100 ML IVPB SCH (04:34)
[2022-02-09] MEDS: polyethylene glycoL 3350 17 GM POWD.PACK PO SCH ×2 (04:36→16:34)
[2022-02-09 05:06] LABS: Hematocrit 25.4 % (35.3-44.9); Mean Corpuscular HGB Conc 31.5 g/dL (31.6-35.5); Mean Corpuscular Hemoglobin 28.2 pg (28.0-33.3); Mean Corpuscular Volume 89.4 fL (83.0-100.0); Platelet Count 328 K/mcL (140-400); Red Blood Count 2.84 M/mcL (3.82-4.97); Red Cell Distribution Width 16.4 % (11.5-14.5); White Blood Count 9.5 K/mcL (4.3-11.1)
[2022-02-09 09:14] LABS: Alanine Aminotransferase 39 Units/L (7-52); Albumin 2.8 g/dL (3.5-5.7); Alkaline Phosphatase 234 Units/L (34-104); Aspartate Amino Transferase 34 Units/L (13-39); BUN/Creatinine Ratio 26 (6-26); Bilirubin,Total 0.4 mg/dL (0.3-1.0); Blood Urea Nitrogen 10 mg/dL (8-23); Carbon Dioxide 29 mEq/L (23-29); Chloride 103 mEq/L (98-107); Globulin 2.9 g/dL (2.4-3.5); Glucose 86 mg/dL (70-105); Magnesium 1.5 mg/dL (1.6-2.6); Osmolality,Calculated 288 (280-300); Potassium 3.8 mEq/L (3.5-5.1); Sodium 140 mEq/L (136-145); Total Protein 5.7 g/dL (6.4-8.9); eGFR For African Americans > 60 (> 60); eGFR For Non-African Americans > 60 (> 60)
[2022-02-09] MEDS: Sennosides 8.6 MG TABLET PO SCH ×2 (10:37→20:27)
[2022-02-09] MEDS: Gabapentin 100 MG CAPSULE PO SCH ×3 (10:38→20:26)
[2022-02-09] MEDS: Magnesium Oxide 400 MG TABLET PO SCH ×2 (10:38→20:26)
[2022-02-09] MEDS: Meropenem 1,000 MG in 0.9 % Sodium Chloride 10 ML IVP SCH ×2 (11:58→20:25)
[2022-02-09] MEDS: *HR* LORazepam 0.5 MG TABLET PO PRN (16:33)
[2022-02-09] MEDS: *HR* HYDROmorphone 2 MG TABLET PO PRN (20:46)
[2022-02-10] MEDS: Meropenem 1,000 MG in 0.9 % Sodium Chloride 10 ML IVP SCH ×3 (04:41→21:20)
[2022-02-10] MEDS: polyethylene glycoL 3350 17 GM POWD.PACK PO SCH ×2 (04:42→16:49)
[2022-02-10] MEDS: Magnesium Oxide 400 MG TABLET PO SCH ×2 (09:24→21:20)
[2022-02-10] MEDS: Sennosides 8.6 MG TABLET PO SCH ×2 (09:24→21:20)
[2022-02-10] MEDS: Gabapentin 100 MG CAPSULE PO SCH ×3 (09:24→21:20)
[2022-02-10] MEDS: *HR* HYDROmorphone 2 MG TABLET PO PRN (14:28)
[2022-02-11] MEDS: Meropenem 1,000 MG in 0.9 % Sodium Chloride 10 ML IVP SCH ×3 (05:00→21:02)
[2022-02-11] MEDS: polyethylene glycoL 3350 17 GM POWD.PACK PO SCH ×2 (05:00→16:35)
[2022-02-11] MEDS: Magnesium Oxide 400 MG TABLET PO SCH ×2 (08:30→21:00)
[2022-02-11] MEDS: Sennosides 8.6 MG TABLET PO SCH ×2 (08:31→21:42)
[2022-02-11] MEDS: Gabapentin 100 MG CAPSULE PO SCH ×3 (08:31→21:01)
[2022-02-11] MEDS: *HR* HYDROmorphone 2 MG TABLET PO PRN (21:01)
[2022-02-12 05:03] LABS: Basophils % 0.4 %; Eosinophils % 0.1 %; Hematocrit 22.5 % (35.3-44.9); Hemoglobin 7.1 g/dL (11.5-15.4); Immature Granulocytes % 1.9 % (0-4); Lymphocytes # 1.2 K/mcL (0.6-4.6); Lymphocytes % 16.3 %; Mean Corpuscular HGB Conc 31.6 g/dL (31.6-35.5); Mean Corpuscular Hemoglobin 28.3 pg (28.0-33.3); Mean Corpuscular Volume 89.6 fL (83.0-100.0); Mean Platelet Volume 9.6 fL (9.4-12.4); Monocytes # 0.9 K/mcL (0.0-1.3); Monocytes % 11.9 %; Neutrophils # 5.2 K/mcL (1.6-8.9); Platelet Count 407 K/mcL (140-400); Red Blood Count 2.51 M/mcL (3.82-4.97); Segmented Neutrophils % 69.4 %; White Blood Count 7.5 K/mcL (4.3-11.1)
[2022-02-12] MEDS: polyethylene glycoL 3350 17 GM POWD.PACK PO SCH ×2 (06:42→14:43)
[2022-02-12] MEDS: Sennosides 8.6 MG TABLET PO SCH ×2 (06:43→19:49)
[2022-02-12] MEDS: Magnesium Oxide 400 MG TABLET PO SCH ×2 (06:43→19:49)
[2022-02-12] MEDS: Gabapentin 100 MG CAPSULE PO SCH ×3 (06:43→19:49)
[2022-02-12] MEDS: *HR* HYDROmorphone 2 MG TABLET PO PRN ×2 (07:45→13:45)
[2022-02-12] MEDS: Ondansetron ODT 4 MG TAB.RAPDIS SL PRN (13:44)
[2022-02-13] MEDS: polyethylene glycoL 3350 17 GM POWD.PACK PO SCH ×2 (04:39→16:22)
[2022-02-13] MEDS: Gabapentin 100 MG CAPSULE PO SCH ×3 (07:35→19:43)
[2022-02-13] MEDS: Magnesium Oxide 400 MG TABLET PO SCH ×2 (07:35→19:43)
[2022-02-13] MEDS: Sennosides 8.6 MG TABLET PO SCH ×2 (07:36→19:43)
[2022-02-13] MEDS: *HR* HYDROmorphone 2 MG TABLET PO PRN ×2 (07:36→13:33)
[2022-02-13] MEDS ORDERED: *HR* HYDROmorphone 2 MG TABLET PO PRN (17:40)
[2022-02-13] MEDS: *HR* LORazepam 0.5 MG TABLET PO PRN (19:43)
[2022-02-14] MEDS: polyethylene glycoL 3350 17 GM POWD.PACK PO SCH ×2 (06:17→21:45)
[2022-02-14] MEDS: Sennosides 8.6 MG TABLET PO SCH ×2 (06:18→21:35)
[2022-02-14] MEDS: Magnesium Oxide 400 MG TABLET PO SCH ×2 (06:18→21:36)
[2022-02-14] MEDS: *HR* HYDROmorphone 2 MG TABLET PO PRN ×2 (06:18→21:36)
[2022-02-14] MEDS: Gabapentin 100 MG CAPSULE PO SCH ×3 (06:18→21:36)
[2022-02-14] MEDS ORDERED: 0.9 % Sodium Chloride 250 ML IVC SCH (17:30)
[2022-02-15] MEDS: polyethylene glycoL 3350 17 GM POWD.PACK PO SCH ×2 (06:11→16:11)
[2022-02-15] MEDS: Sennosides 8.6 MG TABLET PO SCH ×2 (08:00→21:21)
[2022-02-15] MEDS: Gabapentin 100 MG CAPSULE PO SCH ×3 (08:01→21:21)
[2022-02-15] MEDS: *HR* HYDROmorphone 2 MG TABLET PO PRN ×2 (08:01→21:21)
[2022-02-15] MEDS: Magnesium Oxide 400 MG TABLET PO SCH ×2 (08:01→21:21)
[2022-02-16] MEDS: polyethylene glycoL 3350 17 GM POWD.PACK PO SCH ×2 (06:06→16:14)
[2022-02-16] MEDS: Magnesium Oxide 400 MG TABLET PO SCH ×2 (08:03→21:32)
[2022-02-16] MEDS: Gabapentin 100 MG CAPSULE PO SCH ×3 (08:04→21:32)
[2022-02-16] MEDS: Sennosides 8.6 MG TABLET PO SCH ×2 (08:04→21:32)
[2022-02-16] MEDS: *HR* HYDROmorphone 2 MG TABLET PO PRN ×3 (08:04→21:32)
[2022-02-17 04:54] LABS: Hematocrit 26.1 % (35.3-44.9); Hemoglobin 8.5 g/dL (11.5-15.4); Mean Corpuscular HGB Conc 32.6 g/dL (31.6-35.5); Mean Corpuscular Hemoglobin 28.8 pg (28.0-33.3); Mean Corpuscular Volume 88.5 fL (83.0-100.0); Mean Platelet Volume 9.1 fL (9.4-12.4); Platelet Count 323 K/mcL (140-400); Red Blood Count 2.95 M/mcL (3.82-4.97); Red Cell Distribution Width 16.4 % (11.5-14.5); White Blood Count 6.5 K/mcL (4.3-11.1)
[2022-02-17] MEDS: polyethylene glycoL 3350 17 GM POWD.PACK PO SCH ×2 (05:01→14:48)
[2022-02-17 05:08] LABS: Alanine Aminotransferase 37 Units/L (7-52); Albumin/Globulin Ratio 1.1 (1.1-2.2); Alkaline Phosphatase 162 Units/L (34-104); Aspartate Amino Transferase 44 Units/L (13-39); BUN/Creatinine Ratio 41 (6-26); Bilirubin,Total 0.4 mg/dL (0.3-1.0); Blood Urea Nitrogen 17 mg/dL (8-23); Calcium 9.2 mg/dL (8.6-10.3); Carbon Dioxide 28 mEq/L (23-29); Chloride 105 mEq/L (98-107); Globulin 2.8 g/dL (2.4-3.5); Glucose 88 mg/dL (70-105); Magnesium 1.5 mg/dL (1.6-2.6); Osmolality,Calculated 291 (280-300); Potassium 4.4 mEq/L (3.5-5.1); Sodium 140 mEq/L (136-145); Total Protein 5.8 g/dL (6.4-8.9); eGFR For African Americans > 60 (> 60); eGFR For Non-African Americans > 60 (> 60)
[2022-02-17] MEDS: Gabapentin 100 MG CAPSULE PO SCH ×3 (08:16→20:25)
[2022-02-17] MEDS: Magnesium Oxide 400 MG TABLET PO SCH ×3 (08:17→20:25)
[2022-02-17] MEDS: Sennosides 8.6 MG TABLET PO SCH ×2 (08:18→20:26)
[2022-02-17] MEDS ORDERED: dexAMETHasone 4 MG TABLET PO ONE (09:00)
[2022-02-17] MEDS ORDERED: *HR* LORazepam 0.5 MG TABLET PO PRN (20:19)
[2022-02-17] MEDS ORDERED: OLANZapine 5 MG TAB.RAPDIS PO SCH (21:00)
[2022-02-18] MEDS: polyethylene glycoL 3350 17 GM POWD.PACK PO SCH ×2 (04:35→15:05)
[2022-02-18] MEDS: *HR* HYDROmorphone 2 MG TABLET PO PRN ×2 (10:08→20:19)
[2022-02-18] MEDS: Magnesium Oxide 400 MG TABLET PO SCH ×3 (10:09→20:19)
[2022-02-18] MEDS: Gabapentin 100 MG CAPSULE PO SCH ×3 (10:09→20:19)
[2022-02-18] MEDS: Sennosides 8.6 MG TABLET PO SCH ×2 (10:10→20:19)
[2022-02-19] MEDS: polyethylene glycoL 3350 17 GM POWD.PACK PO SCH ×2 (04:12→07:35)
[2022-02-19] MEDS: Sennosides 8.6 MG TABLET PO SCH ×2 (07:35→19:23)
[2022-02-19] MEDS: Magnesium Oxide 400 MG TABLET PO SCH ×3 (09:03→19:22)
[2022-02-19] MEDS: Gabapentin 100 MG CAPSULE PO SCH ×3 (10:06→19:22)
[2022-02-19] MEDS: *HR* HYDROmorphone 2 MG TABLET PO PRN ×2 (10:09→14:46)
[2022-02-20] MEDS: polyethylene glycoL 3350 17 GM POWD.PACK PO SCH ×2 (05:28→14:54)
[2022-02-20 07:09] VITALS: RESP 16
[2022-02-20] MEDS: Magnesium Oxide 400 MG TABLET PO SCH ×3 (09:56→20:36)
[2022-02-20] MEDS: Gabapentin 100 MG CAPSULE PO SCH ×3 (09:56→20:37)
[2022-02-20] MEDS: Sennosides 8.6 MG TABLET PO SCH ×2 (09:57→20:37)
[2022-02-20 19:27] VITALS: O2SAT 96
[2022-02-21 04:41] LABS: Basophils % 0.6 %; Eosinophils % 0.2 %; Hematocrit 22.8 % (35.3-44.9); Hemoglobin 7.5 g/dL (11.5-15.4); Immature Granulocytes % 0.4 % (0-4); Lymphocytes # 0.9 K/mcL (0.6-4.6); Lymphocytes % 18.1 %; Mean Corpuscular HGB Conc 32.9 g/dL (31.6-35.5); Mean Corpuscular Hemoglobin 28.8 pg (28.0-33.3); Mean Corpuscular Volume 87.7 fL (83.0-100.0); Mean Platelet Volume 9.1 fL (9.4-12.4); Monocytes # 0.1 K/mcL (0.0-1.3); Monocytes % 1.4 %; Neutrophils # 3.9 K/mcL (1.6-8.9); Red Cell Distribution Width 16.1 % (11.5-14.5); Segmented Neutrophils % 79.3 %; White Blood Count 4.9 K/mcL (4.3-11.1)
[2022-02-21] MEDS: polyethylene glycoL 3350 17 GM POWD.PACK PO SCH (04:41)
[2022-02-21 04:58] LABS: Alanine Aminotransferase 21 Units/L (7-52); Albumin 3.2 g/dL (3.5-5.7); Albumin/Globulin Ratio 1.2 (1.1-2.2); Alkaline Phosphatase 159 Units/L (34-104); Aspartate Amino Transferase 15 Units/L (13-39); BUN/Creatinine Ratio 38 (6-26); Bilirubin,Total 0.7 mg/dL (0.3-1.0); Blood Urea Nitrogen 15 mg/dL (8-23); Calcium 9.4 mg/dL (8.6-10.3); Carbon Dioxide 30 mEq/L (23-29); Chloride 99 mEq/L (98-107); Globulin 2.6 g/dL (2.4-3.5); Glucose 109 mg/dL (70-105); Magnesium 1.4 mg/dL (1.6-2.6); Osmolality,Calculated 279 (280-300); Potassium 3.5 mEq/L (3.5-5.1); Sodium 134 mEq/L (136-145); Total Protein 5.8 g/dL (6.4-8.9); eGFR For African Americans > 60 (> 60); eGFR For Non-African Americans > 60 (> 60)
[2022-02-21 05:49] LABS: Platelet Count 97 K/mcL (140-400)
[2022-02-21 06:40] LABS: Hypochromasia Present (Not Present)
[2022-02-21 07:09] VITALS: BP 124/79; PULSE 78; TEMP 98.1
[2022-02-21] MEDS: Gabapentin 100 MG CAPSULE PO SCH ×2 (10:36→14:33)
[2022-02-21] MEDS: Sennosides 8.6 MG TABLET PO SCH (10:36)
[2022-02-21] MEDS: Magnesium Oxide 400 MG TABLET PO SCH ×2 (10:36→14:33)
[2022-02-21 11:26] LABS: Basophils % 0.5 %; Eosinophils % 0.2 %; Hematocrit 23.6 % (35.3-44.9); Hemoglobin 7.8 g/dL (11.5-15.4); Immature Granulocytes % 0.5 % (0-4); Lymphocytes % 23.7 %; Mean Corpuscular HGB Conc 33.1 g/dL (31.6-35.5); Mean Corpuscular Volume 87.7 fL (83.0-100.0); Mean Platelet Volume 9.2 fL (9.4-12.4); Monocytes # 0.1 K/mcL (0.0-1.3); Monocytes % 1.9 %; Red Blood Count 2.69 M/mcL (3.82-4.97); Segmented Neutrophils % 73.2 %; White Blood Count 4.1 K/mcL (4.3-11.1)
[2022-02-21 11:28] LABS: Platelet Count 93 K/mcL (140-400)
== END 2022-02-21 15:00 | disposition home health service (06) | DRG 949 ==
LOC: INPGRE 16:02
PROVIDERS: ADMIT Family Medicine; ATTEND Family Medicine